=== PATIENT | male | born 1975 | race Caucasian/White ===

== ENCOUNTER 2017-10-18 07:42 | Emergency (ER) | payer BC ==
[~2017-10-18] VITALS: Ht 182.9 cm; Wt 172.4 kg
[~2017-10-18 07:42] MED LIST: KEFLEX500 M1 PO; MOBIC7.5 MG PO; NORCO 5-325 TA1 EACH PO; ROBAXIN 750 MG750 M1 PO
[2017-10-18] MEDS ORDERED: IBUPROFEN 800800 M1 PO (08:04)
[2017-10-18 08:12] VITALS: BP 178/115
== END 2017-10-18 08:12 | disposition home or self-care (01) ==
LOC: M.ERS 07:42
DX: G56.22 Lesion of ulnar nerve, left upper limb (principal); I10 Essential (primary) hypertension; Z88.0 Allergy status to penicillin